=== PATIENT | female | born 1995 | race Caucasian/White ===

== ENCOUNTER 2017-10-03 10:33 | Outpatient (CLI) | payer BC | END 2017-10-03 10:34 | disposition home or self-care (01) | LOC: LABBT 10:33 | PROVIDERS: ATTEND Surgery | DX: Z01.818 Encounter for other preprocedural examination (principal); K64.8 Other hemorrhoids ==

== ENCOUNTER 2017-10-06 08:45 | Day surgery (SDC) | payer BC ==
[2017-10-03 10:42] VITALS: BMI 25.1
[2017-10-06] MEDS ORDERED: Lidocaine 2% Jelly 5 ML TUBE ONE (09:52)
[2017-10-06] MEDS ORDERED: Bupivacaine/Epinephrine 0.25% 30 ML VIAL ONE (09:52)
[2017-10-06] MEDS ORDERED: Lidocaine 2% 10 ML INJ ONE (09:53)
[2017-10-06] MEDS ORDERED: Fentanyl 100 MCG/2 ML VIAL ONE (10:10)
--- NOTE | 2017-10-06 11:32 | OP ---
PREOPERATIVE DIAGNOSIS: Internal and external hemorrhoid. POSTOPERATIVE DIAGNOSIS: Internal and external hemorrhoid. PROCEDURE PERFORMED: Internal and external hemorrhoidectomy. SURGEON: Jesse Amaral M.D. ANESTHESIA: General. ESTIMATED BLOOD LOSS: Minimal. COMPLICATIONS: None. SPECIMEN: Hemorrhoid. TECHNIQUE: The patient was taken out of lithotomy position. Her perineum was prepped and draped in a sterile fashion. Exam under anesthesia revealed no anal canal mass. There was a posterior lateral enlarged hemorrhoid. LigaSure was used to remove the hemorrhoid, which is internal and external. T he underlying wound is not bleeding. There is no other pathology in the entire exam and anal canal. The anal canal was packed using Gelfoam and lidocaine jelly. Care was taken to avoid injury to the sphincter muscle. The patient was en route to recovery in stable condition. All instrument counts, needle counts, lap counts were correct.
== END 2017-10-06 12:33 | disposition home or self-care (01) ==
LOC: SDC 08:45
PROVIDERS: ATTEND Surgery
PROC: 06BY0ZC Excision of Hemorrhoidal Plexus, Open Approach (ICD-10-PCS; principal; 2017-10-06)
DX: K64.8 Other hemorrhoids (principal); K64.4 Residual hemorrhoidal skin tags; F41.9 Anxiety disorder, unspecified; G43.909 Migraine, unspecified, not intractable, without status migrainosus; F90.9 Attention-deficit hyperactivity disorder, unspecified type; Z88.0 Allergy status to penicillin; Z79.899 Other long term (current) drug therapy
CPT/HCPCS: 88304; J3010